=== PATIENT | male | born 1970 | race Caucasian/White ===

== ENCOUNTER 2023-07-05 20:42 | Emergency (ER) | payer OTHER ==
[~2023-07-05] VITALS: Ht 172.7 cm; Wt 106.4 kg
[2023-07-05] MEDS ORDERED: ADVAIR 250-501 EACH INH (20:57)
[2023-07-05] MEDS ORDERED: VENTOLIN HFA18 GM INH (20:57)
[2023-07-05 21:52] VITALS: BP 120/68
[2023-07-05 22:04] LABS: INFLUENZA B NAA NEGATIVE (NEGATIVE); RESPIRATORY SYNCYTIAL VIR NAA NEGATIVE (NEGATIVE)
== END 2023-07-05 21:53 | disposition home or self-care (01) ==
LOC: ED 20:42
PROVIDERS: Emergency Medicine
DX: J45.901 Unspecified asthma with (acute) exacerbation (principal); Z88.8 Allergy status to other drugs, medicaments and biological substances; Z79.899 Other long term (current) drug therapy; Z20.822 Contact with and (suspected) exposure to COVID-19
CPT/HCPCS: 71046; 87502; C9803; U0002

== ENCOUNTER 2023-08-04 07:55 | Day surgery (SDC) | payer OTHER ==
[~2023-08-04] VITALS: Ht 172.7 cm; Wt 102.2 kg
[~2023-08-04 07:55] MED LIST: ADVAIR 250-501 EACH INH; VENTOLIN HFA18 GM INH
[2023-08-04 08:11] VITALS: BP 150/71
--- NOTE | 2023-08-04 11:29 | NUR ---
08/04/23 Brenda9 Yarelis Owens 1120- PT ARRIVES TO PACU, LEFT LATERAL POSITION. REACTIVE TO STIMULI AND OPENS EYES. DENIES PAIN OR NAUSEA. LR INFUSING TO RH IV, O2 AT 2L PER NC. ABD ROUND, BUT SOFT, ENCOURAGED TO PASS GAS. ALL MONITORS IN PLACE. 1125- PT RESTING INTERMITTENTLY, WAKES EASILY AND ANSWERS QUESTIONS. NO SIGNS OF DISTRESS.
[2023-08-04 11:55] VITALS: BP 112/72
--- NOTE | 2023-08-04 19:15 | OR ---
[facility] [address] [place], [place] [address] Signed DATE OF OPERATION: 08/04/2023 SURGEON: Jamshid Mijares MD PREOPERATIVE DIAGNOSIS: Colon screening. POSTOPERATIVE DIAGNOSIS: Polyps x4 (recovered three). PROCEDURE: Total colonoscopy to cecum with cold morcellation polypectomy x2, cold snare polypectomy x1 and hot snare polypectomy with tattoo x1. ANESTHESIA: Intravenous sedation; fentanyl 100 mcg, Versed 10 mg. 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 Reanna Bliss. He is referred for screening colonoscopy. He has never had colon evaluation in the past. He has no symptoms of bleeding, diarrhea or constipation and no family history of colon cancer. He is admitted at this time to undergo screening colonoscopy based on his age. He understands the risk of bleeding, infection, and perforation. FINDINGS: The prep was quite good. Complete colonoscopy was undertaken to the cecum without question. He had a small polyp of the cecum, which was excised with cold morcellation technique and three polyps in aggregate in the left colon, one excised by cold snare technique, two by cold morcellation technique and a relatively larger pedunculated polyp of the rectosigmoid at 15 cm excised with hot snare polypectomy technique with additional application of hemoclip and endoscopic tattoo marking. There were no other findings of note other than diverticula. DESCRIPTION OF PROCEDURE: The patient was brought to the endoscopy suite and placed in the lateral decubitus position, given intravenous sedation to the point of slurred speech and nystagmus. Digital rectal examination was normal. An Olympus video colonoscope was passed in the rectum and manipulated throughout the Electronically Signed By: JAMSHID MIJARES MD 08/04/23 1915 PATIENT NAME: ELISA HERMOSILLO OPERATIVE REPORT DATE OF : 74 REPORT #: [id number] PHYSICIAN: JAMSHID MIJARES MD PCP: GARY BLISS DO REPORT IS CONFIDENTIAL AND NOT TO BE RELEASED WITHOUT AUTHORIZATION [facility] [address], [place] [address] Signed colon ultimately intubating the cecum. Irrigation was undertaken and a small adenomatous appearing polyp was noted at the cecum. This was excised with cold morcellation technique without problem. The scope was then withdrawn and examination throughout showed no sign of abnormality until the proximal descending colon where a small polyp was noted, this was excised with cold morcellation technique. Further withdrawal showed another similar such polyp, this one excised with cold snare technique. Diverticula were additionally noted in this area. The scope was further withdrawn and another small polyp noted, this was excised with cold morcellation technique. Further withdrawal showed a pedunculated polyp. It was definitely larger than the others at about 15 cm from the anal verge. Injection at the base of the polyp (which is a pedunculated type ultimately found with Endomark tattoo dye allowed for resection with hot snare polypectomy technique. There was some residual bleeding despite attempts at hot snare polypectomy and therefore, a hemoclip was applied. The specimen was grasped with a Calix net and withdrawn. Further withdrawal showed no other abnormality. After reinsertion of the scope, the larger polypectomy site was hemostatic. Retroflexed view of the rectum was normal. Scope was removed and the patient was taken to the recovery room in good condition. CONCLUDING DIAGNOSIS: Polyps x4, only three recovered; a small innocuous polyp of left colon was not found in the trap or elsewhere. PLAN: Would recommend repeat colonoscopy in 1 to 3 years depending on the patient preference, sooner if symptoms should develop. He should maintain a high-fiber diet. He will return to the ongoing care of Dr. Bliss. MD NIKA Uribe/MILINDL /[id number] cc: Gary Bliss DO Electronically Signed By: JAMSHID MIJARES MD 08/04/235 PATIENT NAME: ELISA HERMOSILLO OPERATIVE REPORT DATE OF : 74 REPORT #: [id number] PHYSICIAN: JAMSHID MIJARES MD PCP: GARY BLISS DO REPORT IS CONFIDENTIAL AND NOT TO BE RELEASED WITHOUT AUTHORIZATION [facility] [address] [place] [id number] Signed Copies: GARY BLISS DO ~ Electronically Signed By: JAMSHID MIJARES MD 08/04/231914 PATIENT NAME: ELISA HERMOSILLO OPERATIVE REPORT DATE OF : 74 REPORT #: [id number] PHYSICIAN: JAMSHID MIJARES MD PCP: GARY BLISS DO REPORT IS CONFIDENTIAL AND NOT TO BE RELEASED WITHOUT AUTHORIZATION
--- NOTE | 2023-08-12 15:05 | PATH ---
[facility] [address] [facility] [place], [place] [address] Signed SPECIMEN(S): A CECUM COLON POLYP SPECIMEN(S): B DESCENDING/LEFT COLON POLYP SPECIMEN(S): C SIGMOID POLYP SPECIMEN(S): D POLYP AT 15 CM SPECIMEN SOURCE: A. CECUM COLON POLYP B. DESCENDING/LEFT COLON POLYP C. SIGMOID POLYP D. POLYP AT 15 CM CLINICAL HISTORY: Initial screening colonoscopy FINAL PATHOLOGIC DIAGNOSIS: A. Colon, cecum, polyp, biopsy: - Benign colonic mucosa with prominent intramucosal lymphoid aggregate. - There is no evidence of neoplasia. B. Colon, descending/left, polyp, biopsy: - Tubular adenoma, 1 fragment. - Additional fragments of colonic epithelium are within normal limits. C. Colon, sigmoid, polyp, biopsy: - Tubular adenoma. D. Colon, polyp at 15 cm, polypectomy: - Multiple fragments of tubular adenoma. COMMENT: A. Sections of colonic tissue demonstrate a benign intramucosal lymphoid aggregate. Intramucosal lymphoid aggregates can sometimes appear as polyps endoscopically. They have no clinical significance. There is no evidence of dysplasia or malignancy. B, C, D. There is no evidence of high grade dysplasia or malignancy. TWK MICROSCOPIC EXAMINATION: Histologic sections of all submitted blocks are examined by light microscopy. These findings, together with the gross examination, support the pathologic diagnosis. GROSS DESCRIPTION: A. The specimen, labeled and designated "Zoe cecum polyp," is received in PATIENT NAME: ELISA HERMOSILLO PATHOLOGY DATE OF : 74 REPORT #: [id number] PHYSICIAN: JOSEFINA MARTINEZ PCP: MADELYN BLISS DO REPORT IS CONFIDENTIAL AND NOT TO BE RELEASED WITHOUT AUTHORIZATION [facility] [address] [place], [place] [address] Signed formalin and consists of one glynn soft tissue fragment, 0.3 cm. Entirely submitted in (A1). B. The specimen, labeled and designated "[place], descending colon polyp," is received in formalin and consists of two glynn soft tissue fragments, ranging from 0.2-0.3 cm. Entirely submitted in (B1). C. The specimen, labeled and designated "[place], sigmoid colon polyp," is received in formalin and consists of one glynn soft tissue fragment, 0.3 cm. Entirely submitted in (C1). D. The specimen, labeled and designated "[place], colon polyp at 15 cm," is received in formalin and consists of eight glynn soft tissue fragments, ranging from 0.1-0.8 cm. The biggest tissue fragment is inked and sectioned. The entire specimen is submitted in (D1). JS (under the direct supervision of a pathologist) The Gross Description was prepared using a voice recognition system. The report was reviewed for accuracy; however, sound-alike word errors, addition and/or deletions may occur. If there is any question about this report, please contact Client Services. ADDITIONAL NOTES: Immunohistochemical and/or in situ hybridization studies if performed in this case included appropriate positive controls that reacted as expected. This test was developed and its performance characteristics determined by [facility]. It has not been cleared or approved by the U.S. Food and Drug Administration. The FDA has determined that such clearance or approval is not necessary. This test is used for clinical purposes. It should not be regarded as investigational or for research. [facility] is certified under the Clinical Laboratory Improvement Amendments of 1988 (CLIA) as qualified to perform high complexity clinical laboratory testing. PERFORMING LABORATORY: Technical component was performed by [facility], [address] [facility] [place] [address] (CLIA# [id number]). Professional interpretation was performed by [facility], [address] [place] [address] (CLIA#:[id number]). Diagnostician: Lenard Jaime MD Pathologist Electronically Signed 08/12/2023 PATIENT NAME: ELISA HERMOSILLO PATHOLOGY DATE OF : 74 REPORT #: [id number] PHYSICIAN: JOSEFINA PATHOLOGY PCP: MADELYN BLISS DO REPORT IS CONFIDENTIAL AND NOT TO BE RELEASED WITHOUT AUTHORIZATION [facility] [address] [place] [address] [place] [address] Signed Copies: ~ PATIENT NAME: ELISA HERMOSILLO PATHOLOGY DATE OF : 74 REPORT #: [id number] PHYSICIAN: JOSEFINA MARTINEZ PCP: MADELYN BLISS DO REPORT IS CONFIDENTIAL AND NOT TO BE RELEASED WITHOUT AUTHORIZATION
== END 2023-08-04 12:05 | disposition home or self-care (01) ==
LOC: OPS 07:55 → DS 07:55 → OPS 09:00 → DS 13:00 → OPS 13:00
PROVIDERS: ATTEND Surgery
PROC: 0DBE8ZX Excision of Large Intestine, Via Natural or Artificial Opening Endoscopic, Diagnostic (ICD-10-PCS; 2023-08-04)
PROC: 0DBN8ZX Excision of Sigmoid Colon, Via Natural or Artificial Opening Endoscopic, Diagnostic (ICD-10-PCS; 2023-08-04)
PROC: 0DBM8ZX Excision of Descending Colon, Via Natural or Artificial Opening Endoscopic, Diagnostic (ICD-10-PCS; 2023-08-04)
PROC: 0DBH8ZX Excision of Cecum, Via Natural or Artificial Opening Endoscopic, Diagnostic (ICD-10-PCS; principal; 2023-08-04 09:00)
DX: Z12.11 Encounter for screening for malignant neoplasm of colon (principal); D12.4 Benign neoplasm of descending colon; D12.5 Benign neoplasm of sigmoid colon; D12.6 Benign neoplasm of colon, unspecified; K63.5 Polyp of colon; K57.30 Diverticulosis of large intestine without perforation or abscess without bleeding; K21.9 Gastro-esophageal reflux disease without esophagitis; J45.909 Unspecified asthma, uncomplicated; E66.9 Obesity, unspecified; Z84.89 Family history of other specified conditions; Z88.8 Allergy status to other drugs, medicaments and biological substances; Z79.899 Other long term (current) drug therapy
CPT/HCPCS: 99153; G0500; J2250; J3010

== ENCOUNTER 2025-07-30 11:52 | Day surgery (SDC) | payer OTHER ==
[~2025-07-30] VITALS: Ht 172.7 cm; Wt 100.0 kg
[~2025-07-30 11:52] MED LIST changes: +IBLOOD GLUCOSE TEST STRIP 1 EA TEST VI PRN; +LACTATED RINGER'S 1,000 ML IV SCH; +LIDOCAINE HCL 1% 5 ML SDV INJ ONE; +MIDAZOLAM HCL 5 MG/5 ML VIAL IV PRN; +fentaNYL citrate 100 MCG/2 ML VIAL IV PRN
[2025-07-30 12:19] VITALS: BP 129/71
[2025-07-30] MEDS ORDERED: OMEPRAZOLE20 MG PO (12:19)
[2025-07-30] MEDS ORDERED: fentaNYL citrate 100 MCG/2 ML VIAL ONE (14:19)
[2025-07-30] MEDS ORDERED: MIDAZOLAM HCL 5 MG/5 ML VIAL ONE (14:20)
--- NOTE | 2025-07-30 15:21 | NUR ---
07/30/25 1521 Sera Zepeda 1517: PT ARRIVES TO PACU AWAKE, ABLE TO ANSWER QUESTIONS APPROPRIATELY. PT IS CONNECTED TO MONITORS. REPORT RECEIVED FROM UTILIZATION REVIEWER.
[2025-07-30 15:41] VITALS: BP 122/76
--- NOTE | 2025-07-31 14:52 | OR ---
[facility] [address] [place], [place] [address] Signed DATE OF OPERATION: 07/30/2025 SURGEON: Jamshid Mijares MD PREOPERATIVE DIAGNOSIS: History of tubular adenomas x2 in 2022. POSTOPERATIVE DIAGNOSES: 1. Pedunculated polyp of rectum. 2. Diverticulosis, sigmoid and left colon. PROCEDURE: Total colonoscopy to cecum with hot snare polypectomy x1. ANESTHESIA: Intravenous sedation; fentanyl 100 mcg and Versed 5 mg. INDICATION: This 55-year-old white man is a patient of Dr. Bliss and underwent colonoscopy in 2022, at which time he was found to have tubular adenoma of the left colon rectosigmoid. He was recommended to have repeat in 1 to 3 years. He preferred to do it sooner. He has no current symptoms of bleeding, diarrhea, or constipation and no family history of colon cancer. He understands the risk of colonoscopy including but not limited to bleeding, infection, and perforation and wished to proceed. FINDINGS: The prep was excellent. Complete colonoscopy was undertaken to the cecum with full intubation of the cecum. There were diverticula of the sigmoid and left colon. There was a pedunculated polyp of the low to mid rectum, which was excised with hot snare polypectomy technique. The remaining colon was normal. DESCRIPTION OF PROCEDURE: The patient was brought to the endoscopy suite and placed in the lateral decubitus position, given intravenous sedation to the point of slurred speech and nystagmus. Digital rectal examination was normal. An Olympus video colonoscope was passed in the rectum and manipulated throughout the colon ultimately intubating the cecum. The ileocecal valve and appendiceal orifice were normal. The scope was withdrawn from that point and examination throughout showed no sign of abnormality other than diverticula of the left colon and sigmoid until the Electronically Signed By: JAMSHID MIJARES MD 07/31/25 1452 PATIENT NAME: ELISA HERMOSILLO OPERATIVE REPORT DATE OF : 74 REPORT #: [id number] PHYSICIAN: JAMSHID MIJARES MD PCP: GARY BLISS DO REPORT IS CONFIDENTIAL AND NOT TO BE RELEASED WITHOUT AUTHORIZATION [facility] [address] [place], [place] [address] Signed rectum in the lower to mid portions where a small pedunculated polyp was noted. This was excised with hot snare polypectomy technique and passed for pathology. The scope was removed and the patient was taken to the recovery room in good condition. CONCLUDING DIAGNOSIS: Polyp x1. PLAN: Recommend repeat colonoscopy in 3 to 5 years, sooner if symptoms should develop. He will return to the ongoing care of Dr. Gary Bliss. MD NIKA Uribe/MODL /[id number] cc: Dr. Bliss Copies: ~ Electronically Signed By: JAMSHID MIJARES MD 07/31/25 1452 PATIENT NAME: ELISA HERMOSILLO OPERATIVE REPORT DATE OF : 74 REPORT #: [id number] PHYSICIAN: JAMSHID MIJARES MD PCP: GARY BLISS DO REPORT IS CONFIDENTIAL AND NOT TO BE RELEASED WITHOUT AUTHORIZATION
--- NOTE | 2025-08-05 14:10 | PATH ---
[facility] [address] [place], [place] [address] Signed SPECIMEN(S): A RECTAL POLYP SPECIMEN SOURCE: A. RECTAL POLYP CLINICAL HISTORY: Surveillance�history of polyps. FINAL PATHOLOGIC DIAGNOSIS: Rectum polypectomy: - Tubular adenoma BB MICROSCOPIC EXAMINATION: Histologic sections of all submitted blocks are examined by light microscopy. These findings, together with the gross examination, support the pathologic diagnosis. GROSS DESCRIPTION: The specimen, labeled and designated "Talia HermosilloSparkle, rectum polypectomy," is received in formalin and consists of a single glynn tissue fragment measuring 0.6 cm in greatest dimension. The specimen is entirely submitted in cassette A1. AA (under the direct supervision of a pathologist) The Gross Description was prepared using a voice recognition system. The report was reviewed for accuracy; however, sound-alike word errors, addition and/or deletions may occur. If there is any question about this report, please contact Client Services. ADDITIONAL NOTES: Immunohistochemical and/or in situ hybridization studies if performed in this case included appropriate positive controls that reacted as expected. This test was developed and its performance characteristics determined by [facility]. It has not been cleared or approved by the U.S. Food and Drug Administration. The FDA has determined that such clearance or approval is not necessary. This test is used for clinical purposes. It should not be regarded as investigational or for research. [facility] is certified under the Clinical Laboratory Improvement Amendments of 1988 (CLIA) as qualified to perform high complexity clinical laboratory testing. PATIENT NAME: ELISA HERMOSILLO PATHOLOGY DATE OF : 74 REPORT #: [id number] PHYSICIAN: JOSEFINA MARTINEZ PCP: MADELYN BLISS DO REPORT IS CONFIDENTIAL AND NOT TO BE RELEASED WITHOUT AUTHORIZATION [facility] [address] [place], [place] [address] Signed PERFORMING LABORATORY: Technical component was performed by [facility], [address] [place] [address] (CLIA# [id number]). [facility] [place] [address] (CLIA#: [id number]). Diagnostician: Arvind Jolly MD Pathologist Electronically Signed 08/05/2025 Copies: ~ PATIENT NAME: ELISA HERMOSILLO PATHOLOGY DATE OF : 74 REPORT #: [id number] PHYSICIAN: JOSEFINA MARTINEZ PCP: MADELYN BLISS DO REPORT IS CONFIDENTIAL AND NOT TO BE RELEASED WITHOUT AUTHORIZATION
== END 2025-07-30 15:50 | disposition home or self-care (01) ==
LOC: DS 11:52
PROVIDERS: ATTEND Surgery
PROC: 0DBP8ZX Excision of Rectum, Via Natural or Artificial Opening Endoscopic, Diagnostic (ICD-10-PCS; principal; 2025-07-30 13:00)
DX: Z12.11 Encounter for screening for malignant neoplasm of colon (principal); D12.8 Benign neoplasm of rectum; K57.30 Diverticulosis of large intestine without perforation or abscess without bleeding; Z86.0101 Personal history of adenomatous and serrated colon polyps; K21.9 Gastro-esophageal reflux disease without esophagitis; Z88.8 Allergy status to other drugs, medicaments and biological substances; Z79.899 Other long term (current) drug therapy
CPT/HCPCS: 99153; G0500; J2250; J3010; J7121